=== PATIENT | female | born 1995 | race Caucasian/White ===

== ENCOUNTER 2017-02-26 12:21 | Emergency (ER) | payer BC ==
[~2017-02-26] VITALS: Ht 157.5 cm; Wt 47.8 kg
[~2017-02-26 12:21] MED LIST: ALBU8.5H5 INH
[2017-02-26] MEDS ORDERED: ALBUTEROL SULFATE 2.5 MG/3 ML NPPB ONE (13:00)
[2017-02-26] MEDS ORDERED: ONDANSETRON ODT 4 MG ONE (13:10)
[2017-02-26] MEDS ORDERED: ALBUTEROL SULFATE 2.5 MG/3 ML ONE (13:18)
[2017-02-26] MEDS ORDERED: ONDANSETRON ODT 4 MG PO ONE (13:30)
[2017-02-26 13:33] VITALS: BP 108/66
== END 2017-02-26 13:35 | disposition home or self-care (01) ==
LOC: ED 13:31
DX: J45.901 Unspecified asthma with (acute) exacerbation (principal); Z87.891 Personal history of nicotine dependence
CPT/HCPCS: 71020; 99284; J7512; Q0162